=== PATIENT | female | born 1975 | race Caucasian/White ===

== ENCOUNTER → 2020-05-05 13:55 | Outpatient (CLI) | payer OTHER, SELFPAY ==
--- NOTE | ~2020-05-05 | XR_ITS ---
XR foot RT 2V 05/05/2020 14:11 Indication: Right foot pain Procedure: 2 views right foot Comparison: No prior studies for comparison. Findings: Moderate osteoarthritis of the first MTP joint. Lisfranc joint intact. No acute fracture or malalignment. Lisfranc joint is intact. Mild degenerative change of the talonavicular joint. 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 Reviewed, dictated and finalized at location A. 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
== END ==
PROVIDERS: PCP Family Medicine; Visit Provider Family Medicine
DX: M19.071 Primary osteoarthritis, right ankle and foot (principal)
CPT/HCPCS: 73620

== ENCOUNTER 2020-08-02 14:36 | Outpatient (CLI) | payer OTHER, SELFPAY ==
[2020-08-02 16:15] LABS: Free T4 Free Thyroxine 0.59 ng/mL (0.78-2.19)
[2020-08-02 16:49] LABS: Folic Acid 10.1 ng/mL (2.76->20)
[2020-08-05 04:51] LABS: T3 Reverse 7 ng/dL (8-25)
[2020-08-05 06:58] LABS: Triiodothyronine T3 Free 2.9 pg/mL (2.3-4.2)
== END 2020-08-02 14:37 | disposition home or self-care (01) ==
LOC: ANHLAB 14:39
PROVIDERS: PCP Family Medicine; Visit Provider Family Medicine
DX: R68.89 Other general symptoms and signs (principal); E66.9 Obesity, unspecified; E53.8 Deficiency of other specified B group vitamins; Z79.899 Other long term (current) drug therapy; F98.8 Other specified behavioral and emotional disorders with onset usually occurring in childhood and adolescence; I47.9 Paroxysmal tachycardia, unspecified; R53.83 Other fatigue; G25.81 Restless legs syndrome
CPT/HCPCS: 36415; 82607; 82746; 84439; 84443; 84481; 84482

== ENCOUNTER 2020-09-28 10:32 | Outpatient (CLI) | payer OTHER, SELFPAY ==
[2020-09-28 11:57] LABS: Thyroid Stimulating Hormone 0.233 uIU/mL (0.465-4.680); Total Triiodothyronine (T3) 1.55 NG/ML (0.97-1.69)
[2020-09-28 11:59] LABS: Free T4 Free Thyroxine 0.92 ng/mL (0.78-2.19)
[2020-10-05 07:44] LABS: T3 Reverse 15 ng/dL (8-25)
== END 2020-09-28 10:33 | disposition home or self-care (01) ==
LOC: ANHLAB 10:33
PROVIDERS: PCP Family Medicine; Visit Provider Family Medicine
DX: E07.9 Disorder of thyroid, unspecified (principal)
CPT/HCPCS: 36415; 84439; 84443; 84480; 84482

== ENCOUNTER 2020-12-13 09:27 | Outpatient (CLI) | payer OTHER, SELFPAY ==
[2020-12-13 10:43] LABS: Free T4 Free Thyroxine 0.85 ng/mL (0.78-2.19); Thyroid Stimulating Hormone 0.913 uIU/mL (0.465-4.680)
[2020-12-16 05:55] LABS: Triiodothyronine T3 Free 2.9 pg/mL (2.3-4.2)
[2020-12-16 10:33] LABS: T3 Reverse 15 ng/dL (8-25)
== END 2020-12-13 09:28 | disposition home or self-care (01) ==
PROVIDERS: PCP Family Medicine; Visit Provider Family Medicine
DX: E04.2 Nontoxic multinodular goiter (principal); E07.9 Disorder of thyroid, unspecified; E53.8 Deficiency of other specified B group vitamins; E66.9 Obesity, unspecified; R79.89 Other specified abnormal findings of blood chemistry; Z90.3 Acquired absence of stomach [part of]; G25.81 Restless legs syndrome
CPT/HCPCS: 36415; 84439; 84443; 84481; 84482

== ENCOUNTER 2021-02-08 09:04 | Outpatient (CLI) | payer OTHER, SELFPAY ==
--- NOTE | ~2021-02-08 | US_ITS ---
EXAMINATION: US FNA w image guidance DATE: 02/08/2021 10:05 INDICATION: Multinodular goiter. TECHNIQUE: The procedure and its benefits and risks were discussed with the patient. Risks specifically discusse d included bleeding. The patient verbalized understanding of the risks and agreed to proceed. The nec k was prepped and draped in the usual sterile manner. 1% lidocaine was used for local anesthesia. 5 passes were made with a 25G needle into the lesion under ultrasound guidance. There were no immedia te complications. The patient understood to call the ordering physician for results after a week and a half and verbalized that understanding. FINDINGS: Grayscale ultrasound images demonstrate needles advanced into a 14 mm nodule in thyroid isthmus for b iopsy. The previously described right thyroid nodule measures 8 mm. IMPRESSION: 1. Ultrasound-guided fine needle aspiration of thyroid nodule. Reviewed, dictated and finalized at location A.
== END 2021-02-08 09:05 | disposition home or self-care (01) ==
PROVIDERS: PCP Family Medicine; Visit Provider Family Medicine
DX: E04.2 Nontoxic multinodular goiter (principal)
CPT/HCPCS: 10005; 88173; 88305

== ENCOUNTER 2021-08-21 08:54 | Outpatient (CLI) | payer OTHER, SELFPAY ==
[2021-08-21 20:49] LABS: Basophils Percent Auto 0.6 % (0.2-1.2); Eosinophils Absolute Auto 0.2 K/mm3 (0-0.3); Eosinophils Percent Auto 2.6 % (0-4.4); Hematocrit 43.7 % (37.0-47.0); Hemoglobin 14.1 g/dL (12.0-15.0); Immature Granulocyte Absolute 0.02 K/mm3 (0.00-0.031); Immature Granulocyte Percent A 0.3 % (0-0.5); Lymphocytes Absolute Auto 2.55 K/mm3 (0.9-3.2); Lymphocytes Percent Auto 35.4 % (18.3-44.2); Mean Corpuscular HGB Conc 32.3 g/dl (32-36); Mean Corpuscular Hemoglobin 30.7 pg (26-34); Mean Platelet Volume 11.1 fl (7.4-10.4); Monocytes Absolute Auto 0.5 K/mm3 (0.1-0.6); Monocytes Percent Auto 6.5 % (2.6-8.5); Neutrophils Absolute Auto 3.9 K/mm3 (1.3-6.7); Neutrophils Percent Auto 54.6 % (45.5-73.1); Platelet Count Result 235 k/mm3 (150-375); White Blood Count 7.2 K/mm3 (4.5-10.0)
[2021-08-21 21:00] LABS: Alanine Aminotransferase 18 U/L (4-35); Albumin Level 4.6 g/dL (3.5-5.1); Alkaline Phosphatase 80 U/L (38-126); Anion Gap 10 mmol/L (8-16); Aspartate Amino Transferase 21 U/L (14-36); Bilirubin,Total 0.5 mg/dL (0.2-1.3); Blood Urea Nitrogen 22 mg/dL (7-17); Calcium 9.7 mg/dL (8.4-10.2); Carbon Dioxide 28 mmol/L (22-30); Chloride 104 mmol/L (98-107); Cholesterol 184 mg/dL (0-200); Estimated Glomerular Filt Rate > 60; Glucose 108 mg/dL (65-110); HDL Direct 60 mg/dL; Potassium 3.9 mmol/L (3.4-5.0); Sodium 142 mmol/L (137-145); Triglycerides 145 mg/dL (<150)
[2021-08-21 21:12] LABS: LDL Cholesterol Direct 100 mg/dL
[2021-08-21 21:15] LABS: Free T4 Free Thyroxine 1.14 ng/mL (0.78-2.19)
[2021-08-21 21:18] LABS: Vitamin D 25 Hydroxy 42.1 ng/mL
[2021-08-21 21:35] LABS: Total Triiodothyronine (T3) 1.26 NG/ML (0.97-1.69)
[2021-08-21 22:02] LABS: Vitamin B12 > 1000.0 pg/mL (239-931)
[2021-08-26 04:32] LABS: Thyroid Peroxidase Antibodies 6 IU/mL (<9)
== END 2021-08-21 08:55 | disposition home or self-care (01) ==
LOC: ANHBWCLAB 08:58
PROVIDERS: Internal Medicine Endocrinology, Diabetes & Metabolism; PCP Family Medicine; Visit Provider Family Medicine
DX: Z00.00 Encounter for general adult medical examination without abnormal findings (principal); E04.1 Nontoxic single thyroid nodule; E66.9 Obesity, unspecified; R00.0 Tachycardia, unspecified; R53.83 Other fatigue; R79.89 Other specified abnormal findings of blood chemistry
CPT/HCPCS: 36415; 80053; 80061; 82306; 82607; 84439; 84443; 84480; 85025; 86376

== ENCOUNTER 2021-12-06 08:44 | Outpatient (CLI) | payer OTHER, SELFPAY ==
[2021-12-09 01:30] LABS: Growth Hormone ICMA <0.1 ng/mL (<=7.1)
== END 2021-12-06 08:45 | disposition home or self-care (01) ==
LOC: ANHBWCLAB 08:47
PROVIDERS: PCP Family Medicine; Visit Provider Family Medicine
DX: E66.9 Obesity, unspecified (principal)
CPT/HCPCS: 36415; 83003

== ENCOUNTER 2021-12-14 10:13 | Outpatient (CLI) | payer OTHER, SELFPAY ==
[2021-12-14 10:36] LABS: Hemoglobin A1C 5.9 % (<5.7)
== END 2021-12-14 10:14 | disposition home or self-care (01) ==
LOC: ANHLAB 10:15
PROVIDERS: PCP Family Medicine; Visit Provider Family Medicine
DX: R73.09 Other abnormal glucose (principal)
CPT/HCPCS: 36415; 83036

== ENCOUNTER 2022-09-17 08:30 | Outpatient (CLI) | payer OTHER, SELFPAY ==
[2022-09-17 18:44] LABS: Basophils Percent Auto 0.6 % (0.2-1.2); Eosinophils Absolute Auto 0.1 K/mm3 (0-0.3); Eosinophils Percent Auto 1.4 % (0-4.4); Hematocrit 45.2 % (37.0-47.0); Hemoglobin 14.8 g/dL (12.0-15.0); Immature Granulocyte Absolute 0.01 K/mm3 (0.00-0.031); Immature Granulocyte Percent A 0.2 % (0-0.5); Lymphocytes Absolute Auto 2.08 K/mm3 (0.9-3.2); Lymphocytes Percent Auto 33.1 % (18.3-44.2); Mean Corpuscular HGB Conc 32.7 g/dl (32-36); Mean Corpuscular Hemoglobin 30.1 pg (26-34); Mean Corpuscular Volume 92.1 fl (80-100); Mean Platelet Volume 11.7 fl (7.4-10.4); Monocytes Absolute Auto 0.5 K/mm3 (0.1-0.6); Monocytes Percent Auto 7.3 % (2.6-8.5); Neutrophils Absolute Auto 3.6 K/mm3 (1.3-6.7); Neutrophils Percent Auto 57.4 % (45.5-73.1); Platelet Count Result 231 k/mm3 (150-375); Red Blood Count 4.91 M/mm3 (4.2-5.4); Red Cell Distribution Width 12.7 % (11.5-14.5); White Blood Count 6.3 K/mm3 (4.5-10.0)
[2022-09-17 18:48] LABS: Alanine Aminotransferase 14 U/L (6-35); Albumin Level 4.4 g/dL (3.5-5.1); Alkaline Phosphatase 55 U/L (38-126); Anion Gap 15 mmol/L (8-16); Aspartate Amino Transferase 43 U/L (14-36); Bilirubin,Total 0.6 mg/dL (0.2-1.3); Blood Urea Nitrogen 16 mg/dL (7-17); Carbon Dioxide 27 mmol/L (22-30); Chloride 100 mmol/L (98-107); Cholesterol 160 mg/dL (0-200); Estimated Glomerular Filt Rate > 60; Glucose 87 mg/dL (65-110); HDL Direct 51 mg/dL; Potassium 3.6 mmol/L (3.4-5.0); Sodium 142 mmol/L (137-145); Triglycerides 85 mg/dL (<150)
[2022-09-17 18:54] LABS: Hemoglobin A1C 5.4 % (<5.7)
[2022-09-17 18:59] LABS: LDL Cholesterol Direct 86 mg/dL
== END 2022-09-17 08:31 | disposition home or self-care (01) ==
LOC: ANHBWCLAB 08:32
PROVIDERS: PCP Family Medicine; Visit Provider Family Medicine
DX: R73.03 Prediabetes (principal); E03.9 Hypothyroidism, unspecified; E04.2 Nontoxic multinodular goiter; E66.9 Obesity, unspecified; F98.8 Other specified behavioral and emotional disorders with onset usually occurring in childhood and adolescence; G47.10 Hypersomnia, unspecified; G89.29 Other chronic pain; I47.9 Paroxysmal tachycardia, unspecified; J45.909 Unspecified asthma, uncomplicated; K21.9 Gastro-esophageal reflux disease without esophagitis; R53.83 Other fatigue; T78.40XA Allergy, unspecified, initial encounter; M54.50 Low back pain, unspecified
CPT/HCPCS: 36415; 80053; 80061; 83036; 84443; 85025

== ENCOUNTER 2023-09-16 08:57 | Outpatient (CLI) | payer OTHER, SELFPAY ==
[2023-09-16 19:22] LABS: Hemoglobin 14.4 g/dL (12.0-15.0); Mean Corpuscular HGB Conc 31.3 g/dl (32-36); Mean Corpuscular Hemoglobin 30.4 pg (26-34); Platelet Count Result 247 k/mm3 (150-375); Red Blood Count 4.74 M/mm3 (4.2-5.4); Red Cell Distribution Width 12.5 % (11.5-14.5)
[2023-09-16 20:05] LABS: Alanine Aminotransferase 13 U/L (6-35); Albumin Level 4.6 g/dL (3.5-5.1); Alkaline Phosphatase 53 U/L (38-126); Anion Gap 10 mmol/L (8-16); Aspartate Amino Transferase 58 U/L (14-36); Bilirubin,Total 0.7 mg/dL (0.2-1.3); Blood Urea Nitrogen 12 mg/dL (7-17); Calcium 9.5 mg/dL (8.4-10.2); Carbon Dioxide 29 mmol/L (22-30); Chloride 99 mmol/L (98-107); Cholesterol 192 mg/dL (0-200); Estimated Glomerular Filt Rate > 60; Glucose 78 mg/dL (65-110); HDL Direct 66 mg/dL; Potassium 3.3 mmol/L (3.4-5.0); Sodium 138 mmol/L (137-145); Triglycerides 114 mg/dL (<150)
[2023-09-16 20:21] LABS: Creatinine Urine 64.7 mg/dL
[2023-09-16 20:42] LABS: LDL Cholesterol Direct 90 mg/dL
[2023-09-16 20:49] LABS: MALB Creatinine Ratio < 9.3 mg/g (0-30); Microalbumin Urine Random < 6.0 mg/L (0-16.7)
== END 2023-09-16 08:58 | disposition home or self-care (01) ==
PROVIDERS: PCP Family Medicine; Visit Provider Family Medicine
DX: E11.9 Type 2 diabetes mellitus without complications (principal); E03.9 Hypothyroidism, unspecified; F98.8 Other specified behavioral and emotional disorders with onset usually occurring in childhood and adolescence; J45.909 Unspecified asthma, uncomplicated; K21.9 Gastro-esophageal reflux disease without esophagitis; R53.83 Other fatigue
CPT/HCPCS: 36415; 80053; 80061; 82043; 83036; 85027

== ENCOUNTER 2023-10-25 08:48 | Outpatient (CLI) | payer OTHER, SELFPAY ==
--- NOTE | ~2023-10-25 | US_ITS ---
US abdomen limited INDICATION: Elevated labs PROCEDURE: Realtime right upper abdominal ultrasound. COMPARISON: No prior studies for comparison. FINDINGS: The pancreas is normal without focal mass or pancreatic ductal dilation. Liver echotexture is normal without focal mass or intrahepatic biliary dilatation. There is normal directional flow i n the portal vein. There are gallstones. No gallbladder wall thickening or pericholecystic fluid. Common bile duct edith ures 2 mm. No sonographic Carver's sign. IMPRESSION: 1: Cholelithiasis. Reviewed, dictated and finalized at location B. ARY COOK IMPRESSION: 1: Cholelithiasis.
[2023-10-25 10:05] LABS: Alanine Aminotransferase 11 U/L (6-35); Albumin Level 4.3 g/dL (3.5-5.1); Alkaline Phosphatase 48 U/L (38-126); Anion Gap 9 mmol/L (8-16); Aspartate Amino Transferase 18 U/L (14-36); Bilirubin,Total 0.8 mg/dL (0.2-1.3); Blood Urea Nitrogen 15 mg/dL (7-17); Calcium 8.7 mg/dL (8.4-10.2); Carbon Dioxide 26 mmol/L (22-30); Chloride 102 mmol/L (98-107); Estimated Glomerular Filt Rate > 60; Glucose 87 mg/dL (65-110); Potassium 3.9 mmol/L (3.4-5.0); Sodium 137 mmol/L (137-145)
[2023-10-25 11:41] LABS: Hepatitis B Surface Antigen Negative (Negative)
[2023-10-25 11:47] LABS: HAV RESULT Negative (Negative); Hepatitis B Core IgM Result Negative (Negative)
[2023-10-25 11:58] LABS: Hepatitis C Virus Antibody Negative (Negative)
== END 2023-10-25 08:49 | disposition home or self-care (01) ==
LOC: ANHIMG 08:49
PROVIDERS: PCP Family Medicine; Visit Provider Family Medicine
DX: R74.8 Abnormal levels of other serum enzymes (principal); K80.20 Calculus of gallbladder without cholecystitis without obstruction
CPT/HCPCS: 36415; 76705; 80048; 80074; 80076

== ENCOUNTER 2024-03-17 09:12 | Outpatient (CLI) | payer OTHER, SELFPAY ==
[2024-03-17 18:49] LABS: Hematocrit 45.2 % (37.0-47.0); Hemoglobin 14.7 g/dL (12.0-15.0); Mean Corpuscular HGB Conc 32.5 g/dl (32-36); Mean Corpuscular Hemoglobin 30.5 pg (26-34); Mean Corpuscular Volume 93.8 fl (80-100); Mean Platelet Volume 10.6 fl (7.4-10.4); Platelet Count Result 244 k/mm3 (150-375); Red Blood Count 4.82 M/mm3 (4.2-5.4); Red Cell Distribution Width 12.8 % (11.5-14.5); White Blood Count 6.7 K/mm3 (4.5-10.0)
[2024-03-17 19:08] LABS: Alanine Aminotransferase 12 U/L (6-35); Albumin Level 4.5 g/dL (3.5-5.1); Alkaline Phosphatase 63 U/L (38-126); Anion Gap 6 mmol/L (4-12); Aspartate Amino Transferase 28 U/L (14-36); Bilirubin,Total 0.8 mg/dL (0.2-1.3); Blood Urea Nitrogen 17 mg/dL (7-17); Calcium 9.8 mg/dL (8.4-10.2); Carbon Dioxide 28 mmol/L (22-30); Chloride 102 mmol/L (98-107); Estimated Glomerular Filt Rate > 60; Glucose 84 mg/dL (65-110); Potassium 4.3 mmol/L (3.4-5.0); Sodium 136 mmol/L (137-145)
[2024-03-17 19:31] LABS: Thyroid Stimulating Hormone 0.623 uIU/mL (0.465-4.680)
[2024-03-17 19:58] LABS: Vitamin D 25 Hydroxy 41.3 ng/mL
[2024-03-17 20:18] LABS: Hemoglobin A1C 5.2 % (<5.7)
== END 2024-03-17 09:13 | disposition home or self-care (01) ==
LOC: ANHGOSHLAB 09:14
PROVIDERS: PCP Family Medicine; Visit Provider Family Medicine
DX: E03.9 Hypothyroidism, unspecified (principal); R73.03 Prediabetes; R74.8 Abnormal levels of other serum enzymes; Z00.00 Encounter for general adult medical examination without abnormal findings; E53.8 Deficiency of other specified B group vitamins; R53.83 Other fatigue; R79.89 Other specified abnormal findings of blood chemistry
CPT/HCPCS: 36415; 80053; 82306; 82607; 83036; 84439; 84443; 85027

== ENCOUNTER 2024-11-10 08:43 | Outpatient (CLI) | payer OTHER, SELFPAY ==
[2024-11-10 13:47] LABS: Hematocrit 42.4 % (37.0-47.0); Hemoglobin 13.7 g/dL (12.0-15.0); Mean Corpuscular HGB Conc 32.3 g/dl (32-36); Mean Corpuscular Hemoglobin 30.5 pg (26-34); Mean Corpuscular Volume 94.4 fl (80-100); Platelet Count Result 219 k/mm3 (150-375); Red Blood Count 4.49 M/mm3 (4.2-5.4); Red Cell Distribution Width 12.7 % (11.5-14.5); White Blood Count 4.5 K/mm3 (4.5-10.0)
[2024-11-10 13:49] LABS: Alanine Aminotransferase 11 U/L (6-35); Albumin Level 4.3 g/dL (3.5-5.1); Alkaline Phosphatase 58 U/L (38-126); Anion Gap 4 mmol/L (4-12); Aspartate Amino Transferase 46 U/L (14-36); Bilirubin,Total 0.5 mg/dL (0.2-1.3); Blood Urea Nitrogen 15 mg/dL (7-17); Calcium 9.6 mg/dL (8.4-10.2); Carbon Dioxide 30 mmol/L (22-30); Chloride 104 mmol/L (98-107); Cholesterol 187 mg/dL (0-200); Estimated Glomerular Filt Rate > 60; Glucose 73 mg/dL (65-110); HDL Direct 74 mg/dL; Potassium 4.1 mmol/L (3.4-5.0); Sodium 138 mmol/L (137-145); Triglycerides 87 mg/dL (<150)
[2024-11-10 14:00] LABS: LDL Cholesterol Direct 82 mg/dL
[2024-11-10 21:00] LABS: Hemoglobin A1C 5.3 % (<5.7)
== END 2024-11-10 08:44 | disposition home or self-care (01) ==
LOC: ANHGOSHLAB 08:45
PROVIDERS: PCP Family Medicine; Visit Provider Family Medicine
DX: Z00.00 Encounter for general adult medical examination without abnormal findings (principal); R73.03 Prediabetes; E03.9 Hypothyroidism, unspecified; E53.8 Deficiency of other specified B group vitamins; K21.9 Gastro-esophageal reflux disease without esophagitis; R74.8 Abnormal levels of other serum enzymes; R79.89 Other specified abnormal findings of blood chemistry; R53.83 Other fatigue; E04.2 Nontoxic multinodular goiter; E66.9 Obesity, unspecified; J45.909 Unspecified asthma, uncomplicated; F98.8 Other specified behavioral and emotional disorders with onset usually occurring in childhood and adolescence
CPT/HCPCS: 36415; 80053; 80061; 82306; 82607; 83036; 84443; 85027

== ENCOUNTER 2025-09-16 09:17 | Outpatient (CLI) | payer OTHER, SELFPAY ==
--- NOTE | ~2025-09-16 | CT_ITS ---
EXAMINATION: CT lung screening DATE: 09/16/2025 09:37 INDICATION: Personal history of nicotine dependence TECHNIQUE: Computed tomography (CT) of the chest was performed without intravenous contrast. The dose-length product was 72.05 mGy-cm. Automated exposure control and iterative reconstruction technique were employed. COMPARISON: None FINDINGS: There is atherosclerosis. Heart size normal. Small hiatal hernia. There are surgical changes consistent with gastric bypass. No thoracic lymphadenopathy. Gallbladder is distended. No significant soft tissue abnormality. No foreign bodies. Small bilateral pulmonary nodules measuring 3 mm or less, likely benign. No focal airspace consolidation. No pneumothorax. No endobronchial lesions. Mild thoracic spondylosis. IMPRESSION: 1. Lung-RADS category 2: Benign appearance or behavior. Continue annual screening with noncontrast low-dose chest CT in 12 months. Reviewed, dictated and finalized at location O. IMPRESSION: 1. Lung-RADS category 2: Benign appearance or behavior. Continue annual screeni ng with noncontrast low-dose chest CT in 12 months.
--- OUTSIDE RECORDS SUMMARY | 2025-09-16 09:46 | XMS_ITS | Encounter Summary ---
Author Organization [facility] Healthcare Address [address] [place] [address] Care Team Providers Care Trimming Machine Operator Name Role Phone Unknown, Notiken Primary Care Provider Unavail able Cononr Salas MD Primary Care Provider [phone] Encounter Details Date Type Department Care Team (Late st Contact Info) Description 10/27/2019 Telephone [facility] - Interventional Radiology [facility] [place] [address] Suellen Skinner, RN Social History Tobacco Use Types Packs/Day Years Used Date Smoking Tobacco: Every Day Cigarettes Smokeless Tobacco: Never Alcohol Use Standard Drinks/Week Comments Yes 0 (1 standard drink = 0.6 oz pur e alcohol) occassional Comments No Sex and Gender Information Value Date Recorded Sex Assigned at Not on file 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
--- OUTSIDE RECORDS SUMMARY | 2025-09-16 09:46 | XMS_ITS | Clinical Summary ---
Author Organization [facility] Address [address] [place] [address] Care Team Providers Care Pulp Mixer Name Role Phone Evelin Maynard RN, David DO Primary Care Provider [phone] Source Comments [facility],non-owned Affiliates and Associated Physician Practices is amultiple site organization consisting of ambulatory clinics and hospital sitesin [place], [place], [place] and [place]. This disclosure is being madepursuant to the Care Everywhere program and may not contain all information available regarding this patient. Last updated 18.[facility] Allergies Active Allergy Reactions Criticality Noted Date Comments Sulfamethoxazole W-Trimethoprim Anaphylaxis High 08/31/2011 Sulfa Drugs Anaphylaxis High 05/05/2020 Reaction: ANAPHYLAXIS, Medications * Be aware that medications may not be up to date on this document. Alwaysverify current medications with the patient. cyclobenzaprine (FLEXERIL) 10 MG tablet Take 10 mg by mouth as needed Active loratadine-pseu doephedrine 24hr (CLARITIN-D 24 HOUR) 10-240 MG tablet Take 1 tablet by mouth once daily as needed for Nasal Congestion, Runny Nose or Allergies Active amphetamine-dex troamphetamine (ADDERALL) 5 MG tablet Take 5 mg by mouth 2 times daily Active Cyanocobalamin (VITAMIN B 12 PO) Take 1,000 Units by mouth 2 times daily Active VITAMIN D PO Take 1,000 Units by mouth daily with breakfast Active cetirizine (ZYRTEC ALLERGY) 10 MG gel capsule Take 10 mg by mouth once daily as needed for Allergies or Runny Nose Active liothyronine (CYTOMEL) 5 MCG tablet Take 5 mcg by mouth 2 times daily Active levothyroxine (SYNTHROID) 25 MCG tablet Take 25 mcg by mouth daily before breakfast Active fexofenadine (PHU ALLERGY) 180 MG tablet Take 180 mg by mouth once daily as needed for Runny Nose or Allergies Active omeprazole EC (PRILOSEC OTC) 20 MG tablet Take 20 mg by mouth daily before breakfast Active acetaminophen (TYLENOL) 160 MG/5ML solution Take 31.25 mL by mouth every 8 hours 0 Active Additional Information Patient not taking.Reported on 09/20/2020 magnesium hydroxide (MILK OF MAGNESIA) 400 MG/5ML suspension Take 15 mL by mouth once daily 0 Active Additional Information Patient not taking.Reported on 09/20/2020 ondansetron, disintegrating, (ZOFRAN ODT) 4 MG tablet Take 1 tablet by mouth every 6 hours as needed for Nausea/Vomiting Allow tablet to dissolve on the tongue 20 tablet 0 Active Additional Information Patient not taking.Reported on 09/20/2020 omeprazole (PRILOSEC) 20 MG capsule Take 1 capsule by mouth once daily 30 capsule 0 Active senna-docusate (SENOKOT-S) 8.6-50 MG tablet Take 1 tablet by mouth 2 times daily as needed for Constipation 0 Active Additional Information Patient not taking.Reported on 09/20/2020 magnesium hydroxide (MILK OF MAGNESIA) 400 MG/5ML suspension Take 15 mL by mouth as needed for Constipation 0 Active Additional Information Patient not taking.Reported on 09/20/2020 oxyCODONE (ROXICODONE) 5 MG/5ML oral solution Take 5 mL by mouth every 6 hours as needed 120 mL 0 Active Additional Information Patient not taking.Reported on 09/20/2020 omeprazole (PRILOSEC) 20 MG capsule Take 1 capsule by mouth once daily 30 capsule 5 0 Active ondansetron, disintegrating, (ZOFRAN ODT) 4 MG tablet Take 1 tablet by mouth every 6 hours as needed for Nausea/Vomiting Allow tablet to dissolve on the tongue 20 tablet 0 Active Additional Information Patient not taking.Reported on 09/20/2020 Active Problems Problem Noted Date Diagnosed Date S/P laparoscopic sleeve gastrectomy 09/12/2020 Abnormal uterine bleeding (AUB) 01/06/2018 S/P laparoscopic hysterectomy 01/06/2018 Encounter for health-related screening 1 Overview (02/22/2018): 2nd blood draw dates: 09/30/11-10/14/11 Screen: Positive 1:71 for Down Syndrome Will send to Fellow for review and notify patient on 10/12/11 IMO update 02 23 2018 AMA (advanced maternal age) multigravida 35+ 05/2011 Obesity 08/31/2011 History of labor and abruption, current 08/31/2011 Supervision of high-risk of elderly mu ltigravida 08/31/2011 Overview (08/31/2011): PNL: Ab: GCT: HIV: GBS: Dating: H/H/Plt: Hgb Elec: UDS: QS: CF: Pap: Gc/Chl: UCx: Breast/Bottle Family Planning: History of delivery x 2 08/31/2011 Overview (08/31/2011): [facility] at [facility] 2005 at [place] (abruption at 25 weeks) One was classical incision per pt. Need op reports for both. Tobacco use complicating or childbirth 08/31/2011 Asthma 08/31/2011 Overview (08/31/2011): Mild, seasonal S/P tubal ligation with reversal 08/31/2011 Overview (08/31/2011): Reversal in 2003 S/P incisional hernia repair 08/31/2011 Family History Medical History Relation Name Comments Hypertension Mother Relation Name Status Comments Mother Social History Tobacco Use Types Packs/Day Years Used Date Smoking Tobacco: Every Day Cigarettes 0.3 35 Smokeless Tobacco: Never Tobacco Cessation:Ready to Q uit: No; Counseling Given: Yes Comments:quit 4 months ago Alcohol Use Standard Drinks/Week Comments Yes 0 (1 standard drink = 0.6 oz pur e alcohol) occ Comments No Sex and Gender Information Value Date Recorded Sex Assigned at Not on file 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 Gender Identity Not on file Sexual Orientation Not on file Last Filed Vital Signs Vital Sign Reading Time Taken Comments Blood Pressure 120/80 09/20/2020 10:11 AM CDT Pulse 112 09/20/2020 10:11 AM CDT Temperature 36.5 C (97.7 F) 09/20/2020 10:11 AM CDT Respiratory Rate 16 09/13/2020 12:0 0 PM CDT Oxygen Saturation 99% 09/13/2020 12: 00 PM CDT Inhaled Oxygen Concentration - - Weight 87.6 kg (193 lb 1.6 oz) 10/12/2020 10:38 AM CRISIS CLINICIAN self reported weight Height 152.4 cm (5') 10/12/2020 10:38 AM CRISIS CLINICIAN Body Mass Index 37.71 10/12/2020 10:38 AM CRISIS CLINICIAN Plan of Treatment Health Maintenance Due Date Last Done Comments COLOGUARD (AGES 45-75) - COLON CA SCREENING 1973 COLON MONITORING 1973 COLONOSCOPY - COLON CA SCREENING 1973 CT COLONOGRAPHY - COLON CA SCREENING 1973 Colorectal Cancer Screening 1973 FIT - COLON CA SCREENING 1973 FLEX SIG - COLON CA SCREENING 1973 LIPID TESTING 1973 MAMMOGRAM 1973 HIV SCREENING 1988 HEPATITIS C SCREENING 09/01/1991 DTAP/TDAP/TD VACCINES (1 - Tdap) 1992 HEPATITIS B VACCINE (1 of 3 - 19+ 3-dose series) 1992 PNEUMOCOCCAL VACCINE 50+ (1 of 2 - PCV) 1992 ZOSTER VACCINE (1 of 2) 2023 SCREENING FOR DIABETES 09/13/2023 0, 09/13/2020, 09/13/2020, Additional history exists DEPRESSION SCREENING 11/25/2024 COVID-19 VACCINE ( season) 2025 INFLUENZA VACCINE (#1) 2025 HIB VACCINE Aged Out No longer eligi ble based on patient's age to complete this topic HPV VACCINE Aged Out No longer eligi ble based on patient's age to complete this topic MENINGOCOCCAL (Group B) VACCINE SHARED DECISION-MAKING Aged Out No longer eligible based on patient's age to complete this topic MENINGOCOCCAL GROUPS A/C/Y/W VACCINE Aged Out No longer eligible based on patient's age to complete this topic Procedures Procedure Name Priority Date/Time Associated Diagnosis Comments BASIC METABOLIC PANEL (CALCIUM TOTAL) AM Draw 09/13/2020 4:34 AM CDT from Last 3 Months or Most Recently Relevant to Health Maintenance Results * (ABNORMAL) BASIC METABOLIC PANEL (CALCIUM TOTAL) (09/13/2020 4:34 AM CDT) Glucose 114(H) 70 - 105 mg/dL 09/13/2020 5:17 AM CDT [facility] Sodium 138 136 - 145 mmol/L 09/13/2020 5:17 AM CDT [facility] Potassium 4.4 3.5 - 5.1 mmol/L 09/13/2020 5:17 AM CDT [facility] Chloride 107 98 - 107 mmol/L 09/13/2020 5:17 AM CDT [facility] CO2 20(L) 23 - 31 mmol/L 09/13/2020 5:17 AM CDT [facility] Calcium 8.5 8.4 - 10.4 mg/dL 09/13/2020 5:17 AM CDT [facility] Anion Gap 11 8 - 16 mmol/L 09/13/2020 5:17 AM CDT [facility] BUN 10 7 - 18.7 mg/dL 09/13/2020 5:17 AM CDT [facility] Creatinine 0.78 0.57 - 1.11 mg/dL 09/13/2020 5:17 AM CDT [facility] eGFR by MDRD >60 >60 mL/min/1.7 3m2 09/13/2020 5:17 AM CDT [facility] eGFR by MDRD >60 >60 mL/min/1.7 3m2 09/13/2020 5:17 AM CDT [facility] Blood BLOOD SPECIMEN / Unknown Venipuncture / Unknown 09/13/2020 4:34 AM CDT 09/13/2020 4:48 AM CDT us Carlos Eduardo Velasquez MD LAB - CHEMISTRY ORDERABLES Fi nal Result [facility] [id number] [place] [id number] from Last 3 Months or Most Recently Relevant to Health Maintenance Additional Health Concerns Infection Onset Date Last Indicated MRSA Hx 09/12/2020 09/12/2020 Insurance * Guarantor: Aminata Baltazar Account Type Relation to Patient Date of Phone Billing Address Personal/Family Self 1975 [phone] (Work) [address] [place] [address] [facility] Advance Directives * Full Code (Latest Code Status on File) Date Activated Date Inactivated Comments 09/12/2020 12:24 PM 09/13/2020 5:26 PM * Full Code Date Activated Date Inactivated Comments 01/06/2018 5:41 PM 01/07/2018 2:29 PM Care Teams Pulp Mixer Relationship Specialty Start Date End Date Jose Goodman DO [address] [address] PCP - General Family Medicine 06/08/20 Evelin Maynard, RN 01/06/18
--- OUTSIDE RECORDS SUMMARY | 2025-09-16 09:46 | XMS_ITS | Clinical Summary ---
Author Organization [facility] Medical Office Building [address] Address [address] [place] [address] Care Team Providers Care Vegetable Trimmer Name Role Phone Connor Salas MD Primary Care Provider [phone] Allergies Active Allergy Reactions Criticality Noted Date Comments Sulfa (Sulfonamide Antibiotics) Anaphylaxis Reaction: ANAPHYLAXIS, Sulfamethoxazole-Trimethop rim Anaphylaxis Reaction: ANAPHYLAXIS Sulfasalazine Anaphylaxis High Reaction: ANAPHYLAXIS Medications cyclobenzaprine (FLEXERIL) 10 mg tablet TK ONE T PO QHS PRN FOR SPASMS ONLY 3 04/10/2017 Active loratadine-pseu doephedrine (CLARITIN-D 24-hour) 10-240 mg per 24 hr tablet Take 1 tablet by mouth. Active docusate sodium (COLACE) 100 mg capsuleIndicati ons:constipatio n Take 100 mg by mouth. 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 Surgical History Surgery Date Site/Laterality Comments SPINAL FUSION Medical History Medical History Date Comments Osteoarthritis Seasonal allergies Asthma Unger's palsy 1994 Family History Medical History Relation Name Comments Arthritis Other Hypertension Other Relation Name Status Comments Other Social History Tobacco Use Types Packs/Day Years Used Date Smoking Tobacco: Former Cigarettes Smokeless Tobacco: Never Tobacco Cessation:Ready to Q uit: No Alcohol Use Standard Drinks/Week Comments Yes 0 (1 standard drink = 0.6 oz pur e alcohol) occassional Personal Safety Answer Date Recorded Getting School Help Needed Not on file 01/19 Comments No Sex and Gender Information Value Date Recorded Sex Assigned at Not on file 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 Gender Identity Not on file Sexual Orientation Not on file Obstetrics History Last Filed Vital Signs Vital Sign Reading Time Taken Comments Blood Pressure 143/81 03/13/2022 5:47 PM CDT Pulse 119 03/13/2022 5:47 PM CDT Temperature 36.8 C (98.3 F) 03/13/2022 5:47 PM CDT Respiratory Rate 18 03/13/2022 5:47 PM CDT Oxygen Saturation 100% 03/13/2022 5:47 PM CDT Inhaled Oxygen Concentration - - Weight 83 kg (183 lb) 03/13/2022 5:47 PM CDT Height 152.4 cm (5') 12/20/2019 10:16 PM FILTER TIP INSPECTOR Body Mass Index 35.74 12/20/2019 10:16 PM FILTER TIP INSPECTOR Plan of Treatment Health Maintenance Due Date Last Done Comments Breast Cancer Screening-Mammogram 1973 Colon Cancer Screening-Colonoscopy 1973 Depression Screening 1973 Hepatitis C Screening 1973 DTaP/Tdap/Td Vaccine (1 - Tdap) 1984 Hepatitis B Screening 1991 Regular Well Visit/Exam 18-64 1991 Pneumococcal vaccine <65 (1 of 2 - PCV) 1992 Zoster Vaccine (1 of 2) 2023 Covid-19 Vaccine (4 - 2024- season) 2025 09/08/2021, 12/05/2020, 11/14/2020 Influenza Vaccine (#1) 2025 Insurance [facility] Address: [address] [place] [place] [address] [facility] Address: [place] [address] Care Teams Vegetable Trimmer Relationship Specialty Start Date End Date Connor Salas MD PCP - General 03/13/22
== END 2025-09-16 09:18 | disposition home or self-care (01) ==
PROVIDERS: PCP Family Medicine; Visit Provider Family Medicine
DX: Z12.2 Encounter for screening for malignant neoplasm of respiratory organs (principal); Z87.891 Personal history of nicotine dependence
CPT/HCPCS: 71271

== ENCOUNTER 2025-10-29 11:06 | Outpatient (CLI) | payer OTHER, SELFPAY ==
[2025-10-29 12:56] LABS: Hematocrit 40.8 % (37.0-47.0); Hemoglobin 13.6 g/dL (12.0-15.0); Immature Granulocyte Percent A 0.2 % (0-0.5); Lymphocytes Absolute Auto 2.31 K/mm3 (0.9-3.2); Mean Corpuscular HGB Conc 33.3 g/dl (32-36); Mean Corpuscular Hemoglobin 30.2 pg (26-34); Mean Corpuscular Volume 90.5 fl (80-100); Nucleated Red Blood Cells Absolute Auto 0.000 K/mm3 (0.0-0.012); Nucleated Red Blood Cells Perc 0.0 % (0.0-0.2); Platelet Count Result 220 k/mm3 (150-375); Red Blood Count 4.51 M/mm3 (4.2-5.4); White Blood Count 6.0 K/mm3 (4.5-10.0)
[2025-10-29 13:59] LABS: Hemoglobin A1C 5.3 % (<5.7)
[2025-10-29 15:16] LABS: Alanine Aminotransferase 11 U/L (6-35); Albumin Level 4.1 g/dL (3.5-5.1); Alkaline Phosphatase 56 U/L (38-126); Anion Gap 6 mmol/L (4-12); Aspartate Amino Transferase 24 U/L (14-36); Bilirubin,Total 0.5 mg/dL (0.2-1.3); Blood Urea Nitrogen 21 mg/dL (7-17); Calcium 9.3 mg/dL (8.4-10.2); Carbon Dioxide 28 mmol/L (22-30); Chloride 105 mmol/L (98-107); Estimated Glomerular Filt Rate > 60; Glucose 87 mg/dL (65-110); Potassium 3.8 mmol/L (3.4-5.0); Sodium 139 mmol/L (137-145); Total Protein 7.1 g/dL (6.3-8.2)
[2025-10-29 16:10] LABS: Vitamin B12 233.0 pg/mL (239-931)
== END 2025-10-29 11:07 | disposition home or self-care (01) ==
LOC: ANHGOSHLAB 11:07
PROVIDERS: PCP Family Medicine; Visit Provider Family Medicine
DX: R73.03 Prediabetes (principal); Z79.899 Other long term (current) drug therapy; F98.8 Other specified behavioral and emotional disorders with onset usually occurring in childhood and adolescence; R79.89 Other specified abnormal findings of blood chemistry; E53.8 Deficiency of other specified B group vitamins; K21.9 Gastro-esophageal reflux disease without esophagitis; R74.8 Abnormal levels of other serum enzymes; J45.909 Unspecified asthma, uncomplicated; R53.83 Other fatigue; M75.121 Complete rotator cuff tear or rupture of right shoulder, not specified as traumatic
CPT/HCPCS: 36415; 80053; 82172; 82306; 82607; 83036; 85025